=== PATIENT | female | born 1995 | race Caucasian/White ===

== ENCOUNTER 2023-10-08 13:52 | Emergency (ER) | payer MEDICAID ==
[~2023-10-08] VITALS: Ht 170.2 cm; Wt 69.0 kg
[2023-10-08 14:06] VITALS: O2SAT 100
[2023-10-08 14:57] LABS: BASOPHILS % 0.9 % (0.0-2.0); EOSINOPHILS % 1.4 % (0.0-5.0); HEMATOCRIT. 39.2 % (36.0-48.0); HEMOGLOBIN. 13.4 g/dL (12.0-16.0); LYMPHOCYTES % 32.4 % (20.0-50.0); MEAN CORPUSCULAR HEMOGLOBIN 31.1 pg (28.0-32.0); MEAN CORPUSCULAR HGB CONC 34.1 g/dL (31.0-37.0); MEAN PLATELET VOLUME 8.8 fl (7.4-10.4); MONOCYTES % 8.5 % (2.0-8.0); NEUTROPHILS % 56.8 % (40.0-76.0); PLATELET 229 x1000/uL (130-400); RED BLOOD CELL COUNT 4.31 mill/uL (4.2-5.4); RED CELL DISTRIBUTION WIDTH 14.2 % (11.6-14.6); WHITE BLOOD COUNT 4.6 x1000/uL (4.5-11.0)
[2023-10-08 14:59] LABS: CHLORIDE 104 mEq/L (98-107); POTASSIUM 3.9 mEq/L (3.5-5.1); SODIUM 136 mEq/L (136-145)
[2023-10-08 15:00] LABS: CALCIUM 9.9 mg/dL (8.7-10.4); CARBON DIOXIDE 26 mEq/L (21-32)
[2023-10-08 15:05] LABS: CREATININE 0.7 mg/dL (0.6-1.0); GLUCOSE 92 mg/dL (70-105)
[2023-10-08 15:10] LABS: UREA NITROGEN BLOOD < 5 mg/dL (9-23)
[2023-10-08] MEDS: CHLORDIAZEPOXIDE 25MG CAPSULE PO ONE (15:31)
[2023-10-08] MEDS: LACTATED RINGERS 1,000 ML IV SCH (15:32)
[2023-10-08 15:34] LABS: ALANINE AMINOTRANSFERASE 46 IU/L (10-49); ALBUMIN 4.7 g/dL (3.2-4.8); ASPARTATE AMINOTRANSFERASE 46 IU/L (<34)
[2023-10-08 15:35] LABS: BILIRUBIN TOTAL 3.2 mg/dL (0.1-1.0); PROTEIN TOTAL 7.7 g/dL (6.0-8.3)
[2023-10-08 15:37] LABS: HCG SCREEN NEGATIVE
[2023-10-08 17:12] VITALS: BP 133/91; PULSE 69; RESP 16; TEMP 98.2
== END 2023-10-08 17:18 | disposition home or self-care (01) ==
LOC: ER 13:52
DX: R07.89 Other chest pain (principal); F10.239 Alcohol dependence with withdrawal, unspecified; F10.229 Alcohol dependence with intoxication, unspecified; R74.01 Elevation of levels of liver transaminase levels; Y90.9 Presence of alcohol in blood, level not specified
CPT/HCPCS: 36415; 71045; 80048; 80076; 84703; 85025; 93005; 96360; 99285

== ENCOUNTER 2024-02-05 13:26 | Emergency (ER) | payer MEDICAID ==
[~2024-02-05] VITALS: Ht 172.7 cm; Wt 70.0 kg
[2024-02-05 13:43] VITALS: TEMP 98.4; O2SAT 97
[2024-02-05] MEDS: FLUORESCEIN SODIUM 1MG/STRIP LEFTEYE ONE (14:00)
[2024-02-05] MEDS ORDERED: IBUP-2029 MT (14:59)
[2024-02-05] MEDS ORDERED: SULF1TAB48 MT (14:59)
[2024-02-05] MEDS: IBUPROFEN 600MG TABLET PO ONE (15:09)
[2024-02-05 15:13] VITALS: BP 127/96; PULSE 68; RESP 18; O2SAT 98
== END 2024-02-05 15:16 | disposition home or self-care (01) ==
LOC: ER 13:32
DX: H57.12 Ocular pain, left eye (principal); J45.909 Unspecified asthma, uncomplicated
CPT/HCPCS: 70480; 81025; 99284